=== PATIENT | male | born 1990 | race Caucasian/White ===

== ENCOUNTER 2023-05-26 08:28 | Emergency (ER) | payer OTHER, SELFPAY ==
--- NOTE | 2023-05-26 08:30 | ED.URI ---
HPI - URI/Sore Throat General Chief Complaint: Upper Respiratory Infection Stated Complaint: Headache/Body Aches Time Seen by Provider: 05/26/23 08:29 Source: patient Mode of arrival: ambulatory Limitations: no limitations History of Present Illness HPI Narrative: Brody is a 32-year-old male patient presenting to the clinic today with complaints of headache and body aches x1 day. He reports his symptoms started last night. Has had direct exposure to his daughter who was positive for COVID last week. He denies any known fever or chills. Does report some mild shortness breath with exertion that started this morning. MD elicited complaint: other (Headache, body aches) Review of Systems Review of Systems: Pertinent positives per HPI. Patient denies any fever, chills, rash, visual changes, dizziness, cough, shortness of breath, chest pain, palpitations, nausea, vomiting, diarrhea, constipation, abdominal pain, or any urinary issues. PMFSH Comments At the time of my signature, I reviewed and agree with the nursing past medical, surgical, social, and family history. There is no relevant family history pertinent to the patient complaint. Exam Narrative: General: Well-developed, well nourished, in no apparent distress Head: Normocephalic, atraumatic Eyes: Pupils equally round and reactive to light bilaterally, EOM intact, sclera and conjunctive clear, no discharge, lids normal Ears: TMs intact and clear, ear canals clear, no drainage, grossly hearing normal. Nose: Nares patent, clear nasal discharge, mild inflammation, no sinus tenderness. Mouth: Oral pharynx red without lesions or masses, good dentition, MMM. Postnasal drip Neck: Supple, trachea midline, no enlargement of anterior or posterior cervical nodes, no thyroid masses or goiter palpable. Cardio: Regular rate and rhythm, s1 and s2 normal, no murmur appreciated. Resp: Clear to auscultation bilaterally, no rhonchi, rales, wheezing or rubs Course Course Emergency Course: Portions of this record may have been created with voice recognition software. Level of Care: Express Care Visit Vital Signs Vital signs: Vital signs reviewed MDM - URI/Sore Throat MDM Narrative Medical decision making narrative: At the time of visit patient is resting comfortably on the exam table. COVID, influenza, and strep test were performed and were all negative in the clinic today. We will send strep for culture. I suspect the patient has a viral syndrome/URI. Recommend retesting for COVID in 1-2 days as he did have a close contact. Work note was given for 2 days. Supportive measures were discussed with the patient he voiced understanding discharge instructions agrees to treatment plan. Differential Diagnosis Differential diagnosis: Likely upper respiratory infection, otitis media, sinusitis, viral infection, bronchitis, influenza, pharyngitis and other (COVID) Discharge Plan Discharge Clinical Impression: Viral infection, Close exposure to COVID-19 virus Upper respiratory infection Qualifiers: URI type: unspecified URI Qualified Code(s): J06.9 - Acute upper respiratory infection, unspecified Patient Disposition: Home, Self-Care Condition: Stable Instructions: Antibiotic Form, Upper Respiratory Infection (ED), Viral Syndrome (ED), COVID-19 (Coronavirus Disease 2019) (ED) Additional Instructions: COVID, influenza, and strep test were all negative in the clinic today. We will send strep for culture if this comes back positive we will contact you in place you on antibiotics at that time. Recommend retesting yourself for COVID in 1-2 days Increase fluids and stay well hydrated Tylenol/motrin for pain/fever Flonase and OTC antihistamines as directed Vicks vapor rub to open sinuses Sinus rinses for congestion Cepacol spray, cough drops, throat lozenges, warm tea with honey/lemon, gargle salt water to soothe throat BRAT diet for diarrhea Clear liquids x 24
[2023-05-26 08:37] VITALS: BP 140/86; PULSE 81; RESP 16; TEMP 36.8; O2SAT 97
== END 2023-05-26 09:18 | disposition home or self-care (01) ==
PROVIDERS: Emergency Provider Nurse Practitioner Family
DX: B34.9 Viral infection, unspecified (principal); J06.9 Acute upper respiratory infection, unspecified; Z20.822 Contact with and (suspected) exposure to COVID-19
CPT/HCPCS: 87081; 87426; 87804; 87880; 99213; C9803; G0463

== ENCOUNTER 2025-01-08 08:29 | Emergency (ER) | payer OTHER, SELFPAY ==
[2025-01-08 08:34] VITALS: BP 139/81; PULSE 62; RESP 16; TEMP 36.4; O2SAT 99
--- OUTSIDE RECORDS SUMMARY | 2025-01-08 08:42 | XMS_ITS | Clinical Summary ---
Author Organization [facility] Address [address] [place] [address] Phone Care Team Providers Care Tooling Manager Name Role Phone Juan Bustamante MD Primary Care Provider [phone] Medications No known medications Active Problems Problem Noted Date Diagnosed Date Tobacco dependence 07/04/2023 Family History Medical History Relation Name Comments No Known Problems Brother 1 No Known Problems Brother 2 No Known Problems Father Diabetes Maternal Grandfather No Known Problems Mother No Known Problems Sister Relation Name Status Comments Brother 1 Alive Brother 2 Alive Father Alive Maternal Grandfather Alive Maternal Grandmother Mother Alive Sister Alive Social History Tobacco Use Types Packs/Day Years Used Date Smoking Tobacco: Every Day Cigarettes Passive Smoke Exposure: Current Smokeless Tobacco: Never Tobacco Cessation:Ready to Q uit: No; Counseling Given: No Alcohol Use Standard Drinks/Week Comments Not Currently 0 (1 standard drink = 0.6 oz pur e alcohol) Education Answer Date Recorded What is the highest level of school you have completed or the highest degree you have received? 12th grade 07/04/2023 Sexually Active Control Partners Comments Not Currently Sex and Gender Information Value Date Recorded Sex Assigned at Not on file Legal Sex Male 7:31 PM CDT Gender Identity Not on file Sexual Orientation Not on file Last Filed Vital Signs Vital Sign Reading Time Taken Comments Blood Pressure 130/74 07/04/2023 9:54 AM LIBRARIAN HELPER Pulse 72 07/04/2023 9:54 AM LIBRARIAN HELPER Temperature 36.6 C (97.8 F) 07/04/2023 9:54 AM LIBRARIAN HELPER Respiratory Rate 16 07/23/2022 10:12 AM LIBRARIAN HELPER Oxygen Saturation 96% 07/04/2023 9:54 AM LIBRARIAN HELPER Inhaled Oxygen Concentration - - Weight 69.4 kg (153 lb) 07/04/2023 9:54 AM LIBRARIAN HELPER Height 177.8 cm (5' 10 ) 07/04/2023 9:54 AM LIBRARIAN HELPER Body Mass Index 21.95 07/04/2023 9:54 AM LIBRARIAN HELPER Plan of Treatment Health Maintenance Due Date Last Done Comments Hepatitis C Virus (HCV) Screening 1988 SARS-COV-2 Immunization ( season) 2024 09/18/2021, 08/28/2021 Respiratory Syncytial Virus (RSV) Immunization (Adult) (1 - 1-dose 75+ series) 12/19/2063 Hepatitis B Immunization Completed 999, 11/06/1998, 11/28/1997 DTaP/Tdap/Td Immunization Discontinued 2005, 02/16/1993, 09/05/1990, Additional history exists TdaP Immunization Completed 07/27/2006 Influenza Immunization Discontinued Meningococcal Immunization (ACWY) Aged Out No longer eligible based on patient's age to complete this topic Pneumococcal Immunization Combined Discontinued Rotavirus Immunization Aged Out No lo nger eligible based on patient's age to complete this topic Insurance [place] Member Subscriber Plan / Payer (Ef fective 2022-Present) Name:Brody Jordan Relation to Subscriber:Self Name:Brody Jordan Payer ID:[id number] Group ID:Not on file Type:Not on file Address: [address] Care Teams Tooling Manager Relationship Specialty Start Date End Date Juan Bustamante MD [address] [place] [address] PCP - General Internal Medicine 07/04/23
--- NOTE | 2025-01-08 09:02 | ED_ITS ---
HPI - General Adult General Chief complaint: Skin/Abscess/Foreign Body Stated complaint: skin irritation on arms and legs Source: patient Mode of arrival: ambulatory Limitations: no limitations History of Present Illness HPI narrative: Pt presents for evaluation of a pruritic rash that started yesterday. He was working in the yard this past weekend. His current symptoms are consistent with those he has experienced in the past with poison kamryn dermatitis. His symptoms are primarily involving the extremities x 4. Related Data Allergies Allergy/AdvReac Type Severity Reaction Status Date / Time No Known Allergies Allergy Verified 01/08/25 08:38 Review of Systems Review of Systems: CONSTITUTIONAL: Denies fever, chills, or sweats. EYES: Denies visual changes, redness, or discharge. ENT: Denies rhinorrhea, congestion, sore throat, or otalgia. CARDIOVASCULAR: Denies chest pain, palpitations, or edema. RESPIRATORY: Denies cough or dyspnea. GASTROINTESTINAL: Denies abdominal pain, nausea, vomiting, or diarrhea. GENITOURINARY: Denies dysuria or hematuria. SKIN:Reports pruritic rash to extremities x 4. MUSCULOSKELETAL: Denies back pain, joint pain, or myalgia. NEUROLOGIC: Denies headache, numbness, dizziness, or weakness. PSYCHIATRIC: Denies anxiety or depression. [facility] Past Medical History Medical History No pertinent past medical history Surgical History Surgical History No pertinent past surgical history Family History Family History Mother Family history non-contributory Social History Social History Smoking status: Current every day smoker Tobacco type: e-cigarettes/vaping Alcohol intake: former Substance use: current Substance use type: marijuana Gender identity (if verbalized by the patient): Male Spiritual care concerns: No Exam Narrative: GENERAL: Well-appearing, well-nourished, and in no acute distress. HEAD: Normocephalic, atraumatic. EYES: PERRLA and EOMI. ENT: Nares clear, no rhinorrhea or epistaxis. Mucous membranes moist. Orophary nx without tonsillar hypertrophy exudate or other lesions. Bilateral TMs pearly armenta nonbulging NECK: Supple. No adenopathy or masses. No carotid bruits or JVD CHEST: Clear to auscultation. No respiratory distress. No wheezes rales or rhonchi HEART: Regular rate and rhythm. No murmur heard. Normal peripheral pulses. ABDOMEN: Soft, nontender, nondistended, normal active bowel sounds. EXTREMITIES: Normal range of motion. No edema. SKIN: There are multiple erythematous vesicles with linear areas of erythema to the extremities x4 NEURO: No focal deficits. Alert and oriented x3. PSYCH: Normal mood and affect. Course Course Emergency Course: This is a 34-year-old male who presented for evaluation of rash consistent with poison kamryn dermatitis. Will discharge with prednisone. Recommend calamine lotion and oral benadryl. Follow up with primary care provider. Go to the ER for worsening symptoms. Pt in agreement with plan of care. Level of Care: Express Care Visit Vital Signs Vital signs: Vital Signs Temperature 36.4 C L 01/08/25 08:34 Pulse Rate 62 01/08/25 08:34 Respiratory Rate 16 01/08/25 08:34 Blood Pressure 139/81 01/08/25 08:34 Pulse Oximetry 99 01/08/25 08:34 Oxygen Delivery Room Air 01/08/25 08:34 Temperature 36.4 C L 01/08/25 08:34 Pulse Rate 62 01/08/25 08:34 Respiratory Rate 16 01/08/25 08:34 Blood Pressure 139/81 01/08/25 08:34 Pulse Oximetry 99 01/08/25 08:34 Oxygen Delivery Room Air 01/08/25 08:34 Medical Decision Making Vital Signs Vital Signs: Vital Signs Temperature 36.4 C L 01/08/25 08:34 Pulse Rate 62 01/08/25 08:34 Respiratory Rate 16 01/08/25 08:34 Blood Pressure 139/81 01/08/25 08:34 Pulse Oximetry 99 01/08/25 08:34 Oxygen Delivery Room Air 01/08/25 08:34 Temperature 36.4 C L 01/08/25 08:34 Pulse Rate 62 01/08/25 08:34 Respiratory Rate 16 01/08/25 08:34 Blood Pressure 139/81 05/20/25 08:34 Pulse Oximetry 99 01/08/25 08:34 Oxygen Delivery Room Air 01/08/25 08:34 Discharge Plan Discharge Clinical Impression: Poison kamryn dermatitis Patient Disposition: Home Condition: Stable Instructions: Antibiotic Form, Poison Kamryn (ED) Patient Language: Estonian Prescriptions: New prednisone 20 mg tablet See Rx Instructions .ROUTE .COMPLEX Qty: 18 0RF Rx Instructions: take 2 tabs po daily x 5 days, then 1 tab po daily x 5 days, then 0.5 tabs po daily for 6 days Follow-up/Referrals: Robby,Juan Guevara MD [Primary Care Provider] - Time of Disposition: 08:57
== END 2025-01-08 09:05 | disposition home or self-care (01) ==
PROVIDERS: Emergency Provider Nurse Practitioner; PCP Internal Medicine
DX: L23.7 Allergic contact dermatitis due to plants, except food (principal); F17.290 Nicotine dependence, other tobacco product, uncomplicated; F12.90 Cannabis use, unspecified, uncomplicated
CPT/HCPCS: 99213; G0463